=== PATIENT | female | born 1995 | race Caucasian/White ===

== ENCOUNTER 2024-11-14 20:30 | Emergency (ER) | payer OTHER ==
[2024-11-14] MEDS ORDERED: OMEPRAZOLE40 MG PO (21:51)
[2024-11-14] MEDS ORDERED: methylPREDNISolone sod succ 125 MG VIAL IM ONE (21:55)
== END 2024-11-14 22:05 | disposition home or self-care (01) ==
LOC: ED 20:30
DX: R09.A2 Foreign body sensation, throat (principal); Z87.891 Personal history of nicotine dependence